=== PATIENT | female | born 1970 | race Caucasian/White ===

== ENCOUNTER → 2022-11-26 07:54 | Outpatient (CLI) | payer OTHER, SELFPAY ==
--- NOTE | 2022-11-26 | DI.MRI.S_ITS ---
PROCEDURE: MR KNEE RT WO CON INDICATIONS: CHRONIC ACL TEAR TECHNIQUE: Noncontrast sagittal PD fast spin echo and T2 fast spin echo with fat saturation, sagittal 3-D FLASH with fat saturation; coronal T1 spin echo and PD fast spin echo with fat saturation, and axial PD fast spin echo with fat saturation through the knee. COMPARISON: [facility] Outside Film, CR, XR KNEE 3 VIEWS RIGHT, 09/16/2022, 8:08. FINDINGS: Image quality: Excellent. 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 Torn distal ligament fibers are displaced inferiorly and likely adherent to the posterior cruciate ligament. Posterior Cruciate Ligament: Intact. Medial Collateral Ligament: Intact. Lateral Collateral Ligament: Intact. Medial Meniscus: Diminutive appearance of the medial meniscus may be secondary to prior partial meniscectomy versus chronic degenerative tearing and maceration. A small centrally displaced meniscal flap tear is seen at the anterior root attachment with meniscal tissue extending into the intercondylar notch. Similarly, a displaced meniscal flap is seen at the posterior root attachment extending into the intercondylar notch. Knee remote prior bucket-handle tear is not excluded. Lateral Meniscus: Intact. Medial and Lateral Tendons: The semimembranosus tendon insertions and meniscocapsular junction appear intact. Visualized portions of the pes anserinus tendons appear normal. No abnormal bursal fluid. The long and short heads of the biceps femoris tendon appear intact. The popliteus tendon appears intact. No signs of posterolateral corner injury. Iliotibial band appears normal. Anterior Structures: The quadriceps and patellar tendons appear intact. No patellar subluxation. No femoral trochlear dysplasia or ventral trochlear prominence. No edema in the infrapatellar fat pad. Bones: No acute trabecular bone injury or fracture. Medial Femorotibial Cartilage: Diffuse full-thickness cartilage loss throughout the weight-bearing portion of the medial femorotibial compartment with subchondral edema, subchondral cystic changes, and mild remodeling of the medial tibial plateau articular surface. Small marginal osteophytes are present. Lateral Femorotibial Cartilage: Small marginal osteophytes are present. No focal cartilage defect. Patellofemoral Cartilage: Small marginal osteophytes. No focal cartilage defect. Soft Tissues: A small joint effusion is seen. There is a trace medial popliteal cyst. The musculature surrounding the knee is normal in bulk. IMPRESSION: 1. 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 Torn ligament fibers are inferiorly displaced and chronically adherent to the posterior cruciate ligament. 2. Complex tearing of the medial collateral ligament with a diminutive residual rim of meniscal tissue, likely the related to superimposed degeneration and maceration in the absence of a prior surgery. Displaced meniscal flap components are seen adjacent to the anterior and posterior root attachments with meniscal tissue extending into the intercondylar notch. 3. Full-thickness cartilage loss throughout the weight-bearing portion of the medial femorotibial compartment with subchondral edema, subchondral cystic changes, and remodeling of the medial tibial plateau articular surface. Small tricompartmental marginal osteophytes. 4. Small joint effusion. Approved by: Chad Hickman M.D. on 11/26/2022 at 13:15
== END ==
PROVIDERS: Referring Provider Orthopaedic Surgery; Visit Provider Orthopaedic Surgery
DX: S83.511A Sprain of anterior cruciate ligament of right knee, initial encounter (principal); S83.231A Complex tear of medial meniscus, current injury, right knee, initial encounter; M25.461 Effusion, right knee; M25.561 Pain in right knee
CPT/HCPCS: 73721